=== PATIENT | female | born 1960 | race Caucasian/White ===

== ENCOUNTER 2016-07-27 04:14 | Inpatient (IN) ==
--- NOTE | 2016-07-25 11:07 | EKG Report ---
Test Performed on : 07/25/2016 09:40:19 AM Test Reason : PAT Blood Pressure : / mmHG Vent. Rate : 088 BPM Atrial Rate : 088 BPM P-R Int : 142 ms QRS Dur : 082 ms QT Int : 380 ms P-R-T Axes : 072 074 066 degrees QTc Int : 459 ms Normal sinus rhythm. Normal ECG When compared with ECG of 28-MAR-2016 21:37, Sinus rhythm. has replaced Atrial fibrillation. Vent. rate has decreased BY 50 BPM Non-specific change in ST segment in Inferior leads ST no longer depressed in Anterior leads Nonspecific T wave abnormality no longer evident in Inferior leads Nonspecific T wave abnormality no longer evident in Lateral leads Confirmed by Milton BARRY, Zach Duarte ([id number]) on 07/25/2016 8:06:39 PM
[2016-07-27] MEDS ORDERED: LR 1,000 ML ONE ×2 (05:36→12:02)
[2016-07-27] MEDS ORDERED: ENTEREG ONE (05:36)
[2016-07-27] MEDS ORDERED: KEFZOL 2 GM/D5W 2 GM/50 ML IVPB ONE (05:37)
[2016-07-27 05:59] LABS: HEMATOCRIT 39.7 % (37.0-47.0); MCH 27.7 PG (27-31); MCHC 32.7 g/dL (33-37); MCV 84.5 FL (81-99); MPV 8.6 FL (7.4-10.4); RBC 4.7 XMIL (4.2-5.4)
[2016-07-27] MEDS ORDERED: FLAGYL 500 MG/NS 500 MG/100 ML IVPB IV ONE (06:00)
[2016-07-27 06:40] LABS: AGAP 15; BUN 18 mg/dL (8-22); CALCIUM 8.9 mg/dL (8.8-10.2); CHLORIDE 103 mmol/L (98-107); COSMO 284; POTASSIUM 3.8 mmol/L (3.5-5.1); SODIUM 142 mmol/L (136-145); TCO2 24 mmol/L (25-35)
[2016-07-27 08:58] LABS: URINE MICRO REVIEW NEEDED? NO; URINE SOURCE CATH
[2016-07-27 09:04] LABS: BILIRUBIN URINE NEGATIVE (NEGATIVE); BLOOD URINE NEGATIVE (NEGATIVE); COLOR YELLOW; GLUCOSE URINE NEGATIVE (NEGATIVE); LEUKOCYTES URINE TRACE (NEGATIVE); NITRITE URINE NEGATIVE (NEGATIVE); PH URINE 5.5; PROTEIN URINE NEGATIVE (NEGATIVE); SP GRAVITY URINE 1.022; TURBIDITY URINE CLEAR (CLEAR); UR EPITHELIAL CELLS <10 /HPF (<10); URINE BACTERIA NEGATIVE /HPF; URINE RBC <10 /HPF (<10); URINE WBC <10 /HPF (<10); UROBILINOGEN URINE NORMAL (NORMAL)
--- NOTE | 2016-07-27 11:48 | OPERATIVE NOTE ---
PROCEDURE DATE: 07/27/2016 DATE OF OPERATION: 07/27/2016. PREOPERATIVE DIAGNOSIS: Diverticulitis. POSTOPERATIVE DIAGNOSIS: Diverticulitis. PROCEDURES PERFORMED: 1. Reversal of end-colostomy. 2. Mobilization of the splenic flexure and transverse colon. VENEER STAPLER: Dr. Jose. Dr. Jose was present for the entirety of this case due to the patient's morbid obesity, adhesions from previous operations and peritonitis. He was present from skin incision to skin closure. ESTIMATED BLOOD LOSS: 250. ANESTHESIA: General. COMPLICATIONS: None. OPERATIVE INDICATION: This is a 56-year-old female who had perforated diverticulitis back several months ago, underwent a Nelly's procedure and recovered well from this. She had interval colonoscopy that showed normal colon and rectal stump and reversal was indicated. OPERATIVE FINDINGS: There were moderate intra-abdominal adhesions, morbid obesity and well perfused distal colon and proximal rectum. No other acute intra-abdominal pathology. OPERATIVE NOTE: Risks, benefits, alternatives discussed with the patient. She consented to the procedure. We discussed possibility of leak. She understood these risks and wished to procedure. She was seen in the preoperative area and surgery to be performed was confirmed. She was taken to the operating room, placed in the supine position. General anesthesia induced without complication. She was then placed in lithotomy and all bony prominence were padded. Placed in neutral position. Moss catheter was placed. An orogastric tube was placed. Abdomen was prepped with Betadine, draped in usual fashion. After a time-out was performed, we excised her previous midline scar and carried this dissection down to the level of the fascia. There was approximately 6 inches of subcutaneous fat between the skin and the fascia. We entered the fascia along the midline. There was no evidence of hernias and the fascia is well healed. We then entered the peritoneum bluntly. There was omentum stuck to the underlying abdominal wall, but this was swept down easily. We mobilized the omentum out of the pelvis and lysed small-bowel adhesions and packed the small bowel out of the way. We then turned our attention to the pelvic dissection. Wyatt retractor was placed for exposure. We mobilized the proximal rectal stump down to the level of healthy rectum. Attempts to pass the dilator up showed that there was likely a stricture here. As such, it did require two subsequent resections of the proximal rectum to get back to healthy rectum that could be reached with the stapler. We then mobilized the colostomy intra-abdominally first. We then turned our attention to the skin level where the colostomy had previously been closed prior to prepping the abdomen with a Prolene suture. We made an elliptical incision around this colostomy and dissected down to the level of the fascia, protecting it along the way, freeing it and introducing it intra-abdominally. There is no spillage of stool. The rectal stump was quite low. We mobilized what had reformed of the lateral attachments to the colon up to the splenic flexure and widely mobilized the transverse colon back to the middle colic vessels it from its retroperitoneal attachments. We had good length and good perfusion of the marginal artery to the distal colon. We cleaned up an area proximal to the colostomy site. We ligated the marginal artery at this level. Using a pursestring device we placed a pursestring and opened the colon, protecting the intra-abdominal from contamination. The colon was very small and decompressed. We gradually dilated this to the point that it accepted a 28 mm EEA anvil. We placed this and secured the pursestring suture. There was no significant epiploic fat or diverticula at the distal margin of the colon. We then repacked the small bowel back out of the way, turned our attention. We were able to get a 28 mm EEA stapler to the rectal stump staple line. We did place stay sutures here to secure this during the dissection. Dr. Jose went below, opened the EEA stapler spike and we secured the anvil to this making sure that there was no twisting of the colon and the mesentery was in its anatomic location. We did this by marking the colon during this mobilization. We fired the EEA stapler. There was good anastomosis created. We did an underwater leak test with a rigid proctoscopy, and there is no leakage of bubbles here, but donuts were intact. There was a very floppy anastomosis with no tension whatsoever. We placed this anastomosis down the pelvis. We then ran the small bowel and placed it back in its anatomic location. There were some adhesions here that we did lyse to prevent bowel obstruction. There is a small serosal injury that we oversewed with 3-0 Vicryl sutures as well. Placed the bowel back in its neutral position, covered this with omentum , placed omentum down the pelvis around the anastomosis. We irrigated the abdomen with warm saline until clear. Hemostasis was confirmed. We then closed the colostomy site with interrupted 0 Vicryl sutures transversely, both from above and from inside the abdomen in 2 layers. There is good closure of this. We then began our fascial closure with #1 looped PDS and interrupted 0 Vicryl suture retention sutures. Prior to abdominal closure we did change our gloves and passed off any dirty instruments. The superficial wound closed with patricia. I closed the colostomy site loosely with subcutaneous 0 Vicryl sutures. A gauze medipore tape dressing was applied. We removed her NG tube. At the conclusion, sponge instrument and needle counts correct x2. . She was awoken, transferred to PACU. I spoke with the family. cc: MD MICHELINE Rodriguez
[2016-07-27] MEDS ORDERED: LABETALOL (DOSE) ONE (12:07)
[2016-07-27] MEDS ORDERED: SODIUM CHLORIDE 0.9% 10 ML ONE (12:07)
[2016-07-27] MEDS ORDERED: NEOSTIGMINE ONE (12:07)
[2016-07-27] MEDS ORDERED: ROBINUL ONE (12:08)
[2016-07-27] MEDS ORDERED: NORCURON ONE (12:08)
[2016-07-27] MEDS ORDERED: ZOFRAN ONE (12:08)
[2016-07-27] MEDS ORDERED: NEO-SYNEPHRINE ONE (12:08)
[2016-07-27] MEDS ORDERED: VENTOLIN HFA ONE (12:08)
[2016-07-27] MEDS ORDERED: LR 2,000 ML ONE (12:09)
[2016-07-27] MEDS ORDERED: QUELICIN (DOSE) ONE (12:09)
[2016-07-27] MEDS ORDERED: XYLOCAINE-MPF 2% ONE (12:09)
[2016-07-27] MEDS ORDERED: DECADRON ONE (12:09)
[2016-07-27] MEDS ORDERED: VERSED ONE (12:10)
[2016-07-27] MEDS ORDERED: FENTANYL ONE (12:10)
[2016-07-27] MEDS ORDERED: MORPHINE ONE (12:10)
[2016-07-27] MEDS ORDERED: DIPRIVAN 1% ONE (12:11)
[2016-07-27] MEDS: DILAUDID ONE ×2 (12:16→12:21)
[2016-07-27] MEDS ORDERED: OFIRMEV 1000 MG/ISOTONIC SOLN 1,000 MG/100 ML BOTTLE ONE (12:29)
[2016-07-27] MEDS: LR 1,000 ML IV SCH ×2 (13:06→21:05)
[2016-07-27] MEDS: OFIRMEV 1000 MG/ISOTONIC SOLN 1,000 MG/100 ML BOTTLE IV SCH ×2 (14:48→21:06)
[2016-07-27] MEDS: MORPHINE IV PRN ×3 (16:09→21:06)
[2016-07-27] MEDS: MEVACOR PO SCH (17:04)
[2016-07-27] MEDS: PERIDEX MT SCH (21:06)
[2016-07-28] MEDS: OFIRMEV 1000 MG/ISOTONIC SOLN 1,000 MG/100 ML BOTTLE IV SCH ×4 (01:09→19:58)
[2016-07-28] MEDS: MORPHINE IV PRN ×5 (01:14→19:25)
[2016-07-28 06:02] LABS: BASO% 0.2 % (0.0-0.8); EOS# 0.03 X1000 (0.0-0.7); EOS% 0.2 % (0.0-10.0); HEMATOCRIT 31.1 % (37.0-47.0); HEMOGLOBIN 10.1 g/dL (12.0-16.0); IMM GRAN# 0.02 X1000 (0.0-0.04); IMM GRAN% 0.1 % (0.0-0.5); LYMPH# 1.02 X1000 (1.2-3.4); MANUAL DIFF NEEDED? NO; MCH 27.6 PG (27-31); MCHC 32.5 g/dL (33-37); MONO# 0.88 X1000 (0.11-0.59); MPV 8.8 FL (7.4-10.4); NEUT% 86.5 % (42.2-75.2); PLT 276 X1000 (130-400); RBC 3.66 XMIL (4.2-5.4)
[2016-07-28 06:17] LABS: AGAP 9; BUN 15 mg/dL (8-22); CALCIUM 8.4 mg/dL (8.8-10.2); CHLORIDE 102 mmol/L (98-107); COSMO 279; POTASSIUM 4.7 mmol/L (3.5-5.1); SODIUM 139 mmol/L (136-145); TCO2 28 mmol/L (25-35)
[2016-07-28] MEDS: LR 1,000 ML IV SCH (06:30)
[2016-07-28] MEDS: PERIDEX MT SCH ×3 (08:29→23:10)
[2016-07-28] MEDS: LOVENOX SUBQ SCH (08:29)
[2016-07-28] MEDS: ENTEREG PO SCH ×3 (08:30→23:10)
--- NOTE | 2016-07-28 09:17 | PROGRESS NOTE ---
DATE: 07/28/2016 SUBJECTIVE: Some pain. No nausea. No flatus yet. For the most part she rested overnight. OBJECTIVE: Vital Signs: Afebrile. No tachycardia. Blood pressure has been normal for her. General: She is alert and in no acute distress. Abdomen: Soft and appropriately tender. Her dressings are clean, dry, and intact. Genitourinary: Urine is clear with a Moss catheter in place. LABS: Creatinine is 0.8. Potassium is 4.7. White count is 14, hematocrit 31, and platelets 276. ASSESSMENT AND PLAN: A 56-year-old female status-post end colostomy reversal. She is doing well. She had a low pelvic dissection. We will keep her Moss in place today, give her a soft diet, and decrease her IV fluids. She is on GI and DVT prophylaxis. Increase her physical therapy; ambulation and out of bed. We will continue to follow along. cc: Linda Phelps MD
[2016-07-28] MEDS: ZOFRAN IV PRN (10:56)
[2016-07-28] MEDS: 1/2 NS + KCL 20 MEQ 1,000 ML IV SCH (12:57)
[2016-07-28] MEDS: NEXIUM PO SCH (13:11)
[2016-07-28] MEDS: MAG-OX PO SCH (13:11)
[2016-07-28] MEDS: DUONEB (A & A) INH SCH ×2 (15:48→23:04)
[2016-07-28] MEDS: MEVACOR PO SCH (17:16)
[2016-07-29] MEDS: MORPHINE IV PRN ×4 (00:44→14:51)
[2016-07-29] MEDS: OFIRMEV 1000 MG/ISOTONIC SOLN 1,000 MG/100 ML BOTTLE IV SCH ×4 (00:44→19:05)
[2016-07-29] MEDS: DUONEB (A & A) INH SCH ×4 (03:13→21:37)
[2016-07-29] MEDS: 1/2 NS + KCL 20 MEQ 1,000 ML IV SCH ×2 (06:33→06:34)
[2016-07-29] MEDS: MAG-OX PO SCH (08:38)
[2016-07-29] MEDS: PERIDEX MT SCH ×2 (08:39→22:05)
[2016-07-29] MEDS: ENTEREG PO SCH ×2 (08:39→22:05)
[2016-07-29] MEDS: NEXIUM PO SCH (08:39)
[2016-07-29] MEDS: LOVENOX SUBQ SCH (08:40)
[2016-07-29] MEDS: ZOFRAN IV PRN ×2 (10:22→15:21)
--- NOTE | 2016-07-29 12:47 | PROGRESS NOTE ---
DATE: 07/29/2016 SUBJECTIVE: She feels well. Having a productive cough but no increased work of breathing. Abdomen is soft, appropriately tender. Incision is clean, dry, intact with no erythema. No new labs today. She is tolerating a soft diet. OBJECTIVE: Temperature is 98.3 degrees, pulse 86, blood pressure 116/64. ASSESSMENT/PLAN: A 56-year-old female status post end-colostomy reversal. She is doing well. Has not had complete return of bowel function yet, but she is tolerating a little bit of p.o. Her mobility is increasing. She is participating aggressively with pulmonary toilet. She does have some secretions, not unexpected with her smoking history. We will continue to follow along. Encourage her to limit her p.o. until things began passing through. Dr. Jose is going to see her this weekend for me, but I am available by phone. cc: Linda Phelps MD
[2016-07-29] MEDS: MEVACOR PO SCH (17:58)
[2016-07-30] MEDS: OFIRMEV 1000 MG/ISOTONIC SOLN 1,000 MG/100 ML BOTTLE IV SCH ×5 (01:56→22:31)
[2016-07-30] MEDS: MORPHINE IV PRN ×5 (01:56→22:31)
[2016-07-30] MEDS: 1/2 NS + KCL 20 MEQ 1,000 ML IV SCH ×3 (02:59→22:31)
[2016-07-30] MEDS: DUONEB (A & A) INH SCH ×4 (05:43→21:19)
[2016-07-30] MEDS: ZOFRAN IV PRN ×2 (06:46→12:55)
--- NOTE | 2016-07-30 08:59 | PROGRESS NOTE ---
DATE: 07/30/2016 SUBJECTIVE: Ms. Vee Rizzo is a 56-year-old white female, patient of Dr. Duncan Phelps, who on 07/27/2016 underwent a colostomy takedown. She is now postop day 3. She still has her Moss catheter tube in place. She has no NG tube. She is awake and cooperative. OBJECTIVE: Her heart rate is 95, blood pressure 122/69. O2 saturation 92% on 2 L nasal cannula O2. She has no significant work of breathing. She is afebrile. On no antibiotics. Her incision is dressed, and she has an abdominal binder on. She was brought Chel's gravy and biscuits by her this morning. She has not been able to eat much. She has had no bowel activity. PLAN: We will remove her Moss catheter tube. We will increase her activity. We will continue her Entereg thus far. cc: MD Lnida Chamberlain MD
[2016-07-30] MEDS: ENTEREG PO SCH ×2 (09:40→22:31)
[2016-07-30] MEDS: PERIDEX MT SCH ×2 (09:40→22:31)
[2016-07-30] MEDS: LOVENOX SUBQ SCH (09:41)
[2016-07-30] MEDS: MAG-OX PO SCH (09:41)
[2016-07-30] MEDS: NEXIUM PO SCH (09:41)
[2016-07-30] MEDS: MEVACOR PO SCH (16:59)
[2016-07-31] MEDS: OFIRMEV 1000 MG/ISOTONIC SOLN 1,000 MG/100 ML BOTTLE IV SCH ×4 (03:19→21:16)
[2016-07-31] MEDS: DUONEB (A & A) INH SCH ×4 (03:33→22:58)
[2016-07-31] MEDS: ZOFRAN IV PRN (06:54)
[2016-07-31] MEDS: MORPHINE IV PRN ×4 (06:54→21:17)
[2016-07-31] MEDS: LOVENOX SUBQ SCH (09:17)
[2016-07-31] MEDS: MAG-OX PO SCH (09:17)
[2016-07-31] MEDS: ENTEREG PO SCH ×2 (09:17→21:16)
[2016-07-31] MEDS: NEXIUM PO SCH (09:17)
[2016-07-31] MEDS: PERIDEX MT SCH ×2 (09:17→21:16)
--- NOTE | 2016-07-31 09:27 | PROGRESS NOTE ---
DATE: 07/31/2016 Ms. Vee Rizzo is now postop day 4 from a colostomy takedown. She has had no flatus but she is on a soft diet. Her wound remains dressed and she has an abdominal binder on. She is awake, cooperative. She states that she feels better each day. Her heart rate is 96, blood pressure 99/63, O2 saturation is 100% on nasal cannula O2. I have removed her Moss. She is voiding without difficulty. She is afebrile, on no antibiotics. She is still on Entereg and IV Tylenol. We will stop those as she returns to bowel function. We need to increase her activity. cc: MD Linda Chamberlain MD
[2016-07-31] MEDS: MEVACOR PO SCH (17:10)
[2016-08-01] MEDS: DUONEB (A & A) INH SCH ×4 (03:33→21:31)
[2016-08-01] MEDS: OFIRMEV 1000 MG/ISOTONIC SOLN 1,000 MG/100 ML BOTTLE IV SCH ×4 (04:22→19:57)
[2016-08-01] MEDS: MORPHINE IV PRN ×2 (06:27→12:50)
[2016-08-01] MEDS: 1/2 NS + KCL 20 MEQ 1,000 ML IV SCH ×2 (06:27→12:49)
--- NOTE | 2016-08-01 09:11 | PROGRESS NOTE ---
DATE: 08/01/2016 SUBJECTIVE: Passing some gas, having some pain and intermittent nausea but overall is tolerating her diet. OBJECTIVE: Vital Signs: No fevers. Heart rate is 94, blood pressure 107/64, oxygen saturation 99% on nasal cannula. General: She is alert and oriented. Abdomen: Soft, appropriately tender. Incisions are clean, dry, and intact. No cellulitis. She is nondistended. Laboratory Data: No new labs this morning. ASSESSMENT/PLAN: A 56-year-old female status post colostomy reversal. She is doing well. She has had return of bowel function. She needs to get up and move around more. I have encouraged her to do this. Physical therapy was ordered. We will keep her on a diet. Stop her fluids as she is taking more adequate amounts. Stopped Entereg. Keep ofirmiv going, given that she is still having some pain. She is on gastrointestinal and deep venous thrombosis prophylaxis. cc: Linda Phelps MD MTDD
[2016-08-01] MEDS: LOVENOX SUBQ SCH (09:31)
[2016-08-01] MEDS: MAG-OX PO SCH (09:31)
[2016-08-01] MEDS: NEXIUM PO SCH (09:31)
[2016-08-01] MEDS: PERIDEX MT SCH ×3 (09:32→22:44)
[2016-08-01] MEDS: ULTRAM PO PRN ×3 (09:39→22:07)
[2016-08-01] MEDS: MEVACOR PO SCH (16:07)
[2016-08-01] MEDS: ZOFRAN IV PRN (16:16)
[2016-08-02] MEDS: OFIRMEV 1000 MG/ISOTONIC SOLN 1,000 MG/100 ML BOTTLE IV SCH (01:21)
[2016-08-02] MEDS: DUONEB (A & A) INH SCH ×2 (03:23→09:12)
[2016-08-02] MEDS: ULTRAM PO PRN ×2 (06:30→12:36)
[2016-08-02 07:51] VITALS: BP 106/73
[2016-08-02] MEDS: MAG-OX PO SCH (09:29)
[2016-08-02] MEDS: NEXIUM PO SCH (09:29)
[2016-08-02] MEDS: LOVENOX SUBQ SCH (09:30)
[2016-08-02] MEDS: PERIDEX MT SCH (09:30)
--- NOTE | 2016-08-03 14:00 | DISCHARGE SUMMARY ---
ADMISSION DATE: 07/27/2016 DISCHARGE DATE: 08/02/2016 PREOPERATIVE DIAGNOSIS: Diverticulitis. PROCEDURE PERFORMED: Reversal of end-colostomy. HISTORY OF PRESENT ILLNESS: This is a 56-year-old female who had perforated diverticulitis and underwent a Nelly's procedure a couple months ago. She recovered well. Colonoscopy showed another distal or proximal lesion and she had requested reversal as indicated. For details, please see dictated operative note. HOSPITAL COURSE: The surgery went well without any complications. Per ERAS pathway diet was advanced. She was continued on her Entereg and ofirmiv with Ultram as needed for pain. She did well with this. Her mobility improved. Her Moss catheter was discontinued on postop day 3 given the low pelvic dissection and she had no troubles with urination after this. She was continued on PPI and DVT prophylaxis throughout her course and did well. She ultimately had return of bowel function, was tolerating a diet, mobility is improving, and she has weaned off O2. It was felt safe for discharge as she was voiding on her own. She is given prescriptions for Elmora, Colace, and Zofran. DISCHARGE INSTRUCTIONS: She was to call with any fevers, redness of her incisions, worsening abdominal pain, nausea, vomiting, or inability to have a bowel movement. Otherwise, she can see me back next week for staple removal. She will avoid heavy lifting. DISCHARGE DIET: GI soft diet with small frequent meals. DISCHARGE MEDICATIONS: Home medicines plus Elmora, Colace, and Zofran were given at the time of discharge. On the day of her discharge her wounds all look okay. There was no erythema, no drainage, and they were intact. cc: Linda Phelps MD [facility]
== END 2016-08-02 12:45 | disposition home or self-care (01) ==
LOC: SURHOLD 04:14 → 4N 12:17
PROVIDERS: ADMIT Surgery; ATTEND Surgery